=== PATIENT | female | born 1975 | race Hispanic/Latino ===

== ENCOUNTER 2025-05-15 21:10 | Emergency (ER) | payer SELFPAY ==
[~2025-05-15] VITALS: Ht 157.5 cm; Wt 78.5 kg
[2025-05-15 21:47] LABS: IMMATURE GRANULOCYTE ABSOLUTE 0.06 K/uL (0-1); NUCLEATED RED BLOOD CELLS 0.0 % (0.0-0.19); PLATELET COUNT (AUTO) 154 K/uL (130-400); RED BLOOD CELL COUNT(AUTO) 5.58 MIL/uL (4.00-5.50); RED CELL DISTRIBUTION WIDTH 13.2 % (11.0-15.5); WHITE BLOOD COUNT (AUTO) 7.8 K/uL (4.8-10.8)
[2025-05-15 21:56] LABS: CREATININE 0.5 mg/dL (0.5-1.0); GLOMERULAR FILTR. RATE CALC 114.0 mL/min (>90); GLUCOSE,RANDOM 323.0 mg/dL (70-105); SODIUM SERUM 139.0 mmol/L (136-145); UREA NITROGEN, BLOOD 12.0 mg/dL (7-18)
[2025-05-15 22:01] LABS: CREATINE KINASE, TOTAL 24.0 U/L (21-232)
--- NOTE | 2025-05-15 22:14 | NUR ---
PATIENT ATTEMPTING TO GET A URINE SAMPLE AT THIS TIME.
--- NOTE | 2025-05-15 22:30 | ERN ---
ED Note History of Present Illness Stated Complaint: C/O N X V, HIGH SUGAR Chief Complaint: Blood Sugar Problem Time Seen by MD: 21:17 Time Seen by Midlevel: 21:17 Dictation: The patient is a 60-year-old female with a past medical history of diabetes on metformin, blindness who presents to the emergency department with complaints of nausea nonbloody vomiting and elevated blood sugars at home onset noon today. Patient denies any abdominal pain, fevers, diarrhea or constipation. Reports last bowel movement today. Denies any upper respiratory symptoms. Patient denies any dizziness or headache. Allergies: Coded Allergies: No Known Allergies (Unverified Allergy, Unknown, 05/15/25) Past Medical History Past Medical History: Diabetes-Type II, Other Additional Past Medical Hx: PT IS BLIND Surgical History: Other, Surgical History Other: EYE SX RN Note Reviewed/Agreed w/PFSH: Yes Review of System Dictation Constitutional: Negative for fever,chills, and weight loss Eyes: Negative for injury, pain,redness, and discharge ENT: Negative for injury,pain or swelling Cardiovascular: Negative for chest pain, palpitations, and edema Respiratory: Negative for shortness of breath, cough, and wheezing, Abdomen/GI: Negative for abdominal pain, diarrhea, and constipation positive for nausea and vomiting Back: Negative for injury and pain : Negative for injury, bleeding and discharge MS/Extremity: Negative for injury and deformity Skin: Negative for rash, and discoloration Neuro: Negative for headache, weakness, numbness, tingling, and seizure Psych: Negative for suicide ideation, homicidal ideation, and hallucinations Initial Vital Sign VS Vital Signs Date Time Temp Pulse Resp B/P (MAP) Pulse Ox O2 Delivery O2 Flow Rate FiO2 05/15/25 21:14 97.9 93 20 125/76 99 Room Air 05/15/25 23:17 0 21 Physical Exam Dictation Vital Signs reviewed General Appearance: Alert, oriented x 3, no acute distress, well developed, nourished. Head and Face: non-traumatic. Eyes: PER pink conjunctivas, eyelid no trauma, anterior chamber with arcus senilis. Ears: Pinnas intact and no signs of trauma or erythema ear canals clear and no discharge TM no erythema Nose: No discharge, no bleeding. Oropharynx: Mouth normal, tongue pink. pharynx clear,no erythema, tonsils no exudates, no abscesses noted, mucous membrane moist Neck: Supple, non-tender, no thyromegaly, no masses, no JVD, no bruits Breast:Deferred Chest:No tenderness, no crepitus, no paradoxical movement, no retractions Lungs:Clear, well-ventilated, symmetric, no rales, no wheezing, no rhonchi, no stridor, good breath sounds bilaterally Heart: Regular rate, regular rhythm, no murmur, no gallops Vascular: no peripheral edema, Abdomen: Soft, positive bowel sounds, nondistended, no guarding, nontender, no rebound, no masses no hepatomegaly, no splenomegaly, no Ocampo's sign, no hernias. Rectal: Deferred Genital: Deferred Neurological: Normal speech, motor function intact, sensory function intact Musculoskeletal: Neck nontender, full range of motion, back nontender, full range of motion, Extremities: nontender, full range of motion Skin: Color pink, dry, no turgor, no rash, no lacerations, no abrasions, no contusions. Lymphatic: Deferred Results (Laboratory/Radiology) Laboratory/Radiology Laboratory Tests Test 05/15/25 21:19 05/15/25 21:42 05/15/25 22:19 Whole Blood Glucose 329 MG/DL (70-110) H White Blood Count 7.8 K/uL (4.8-10.8) Red Blood Count 5.58 MIL/uL (4.00-5.50) H Hemoglobin 15.5 g/dL (12.0-16.0) Hematocrit 45.1 % (36-48) Mean Corpuscular Volume 80.8 fL (79-99) Mean Corpuscular Hemoglobin 27.8 pg (27.0-33.0) Mean Corpuscular Hemoglobin Concent 34.4 g/dL (32.0-36.0) Red Cell Distribution Width 13.2 % (11.0-15.5) Platelet Count 154 K/uL (130-400) Mean Platelet Volume 11.1 fL (7.5-10.5) H Immature Granulocyte % (Auto) 0.8 % (0-1) Neutrophils (%) (Auto) 85.3 % (40.0-77.0) H Lymphocytes (%) (Auto) 10.1 % (21.0-51.0) L Monocytes (%) (Auto) 3.4 % (3.0-13.0) Eosinophils (%) (Auto) 0.1 % (0.0-8.0) Basophils (%) (Auto) 0.3 % (0.0-5.0) Neutrophils # (Auto) 6.7 K/uL (1.8-7.7) Lymphocytes # (Auto) 0.8 K/uL (1.0-4.8) L Monocytes # (Auto) 0.3 K/uL (0.1-1.0) Eosinophils # (Auto) 0.01 K/uL (0.00-0.70) Basophils # (Auto) 0.02 K/uL (0.00-0.20) Absolute Immature Granulocyte (auto 0.06 K/uL (0-1) Nucleated Red Blood Cells 0.0 % (0.0-0.19) Sodium Level 139 mmol/L (136-145) Potassium Level 3.7 mmol/L (3.5-5.1) Chloride Level 100 mmol/L (101-111) L Carbon Dioxide Level 28 mmol/L (21-32) Blood Urea Nitrogen 12 mg/dL (7-18) Creatinine 0.5 mg/dL (0.5-1.0) Glomerular Filtration Rate Calc 114 mL/min (>90) Random Glucose 323 mg/dL (70-105) H Total Calcium 8.8 mg/dL (8.5-10.1) Total Creatine Kinase 24 U/L (21-232) Troponin I High Sensitivity < 4 ng/L (4-50) L Lipase 28 U/L (16-77) Urine Color YELLOW (YELLOW) Urine Appearance CLEAR (CLEAR) Urine pH 7.0 (5.0-8.0) Urine Specific [place] 1.040 (1.001-1.031) Urine Protein 30 mg/dL (NEGATIVE) H Urine Glucose (UA) >=1000 mg/dL (NEGATIVE) H Urine Ketones 40 mg/dL (NEGATIVE) H Urine Occult Blood NEGATIVE (NEGATIVE) Urine Nitrate NEGATIVE (NEGATIVE) Urine Bilirubin NEGATIVE mg/dL (NEGATIVE) Urine Urobilinogen 3 mg/dL (0.2-1.0) H Urine Leukocyte Esterase NEGATIVE Atilio/uL Urine RBC None /HPF (0-1) Urine WBC 2-5 /HPF (0-1) H Urine Squamous Epithelial Cells RARE /HPF (0-2) Urine Bacteria RARE /HPF (None Seen) Labs Reviewed?: Yes EKG: (+) rhythm (Sinus rhythm) EKG Comment: Date:05/15/2025 Time:2258 Ventricular rate:85 MD interval:160 QRS duration:88 QT/QTc:390/465 EKG interpretation: Sinus rhythm Reviewed by ED Attending no STEMI ED Course ED Course Orders Procedure Category Date Status Time Cbc With Differential LAB 05/15/25 Complete 21: Troponin I High LAB 05/15/25 Complete Sensitivity 21:33 Urinalysis Profile LAB 05/15/25 Complete 21:33 0.9%Nacl 1000ml (Ns PHA 05/15/25 Complete 1000ml) 22:00 Ondansetron 4mg Inj PHA 05/15/25 Complete (Zofran 4mg Inj) 22:00 Pantoprazole 40mg Inj PHA 05/15/25 Complete (Protonix 40mg Inj 22:00 Creatine Kinase, Total LAB 05/15/25 Complete 21:33 Lipase LAB 05/15/25 Complete 21:33 Basic Metabolic Panel LAB 05/15/25 Complete 21:33 Insulin Regular, PHA 05/15/25 Complete Human 3ml (Humulin R 23:00 12 Lead Ekg Tracing- EKG 05/15/25 Logged Technical 22:55 Current Medications Medications (Trade) Dose Ordered Sig/Amor Route PRN Reason Start Time Stop Time Status Last Admin Dose Admin Insulin Human Regular (humuLIN R 100 UNIT/ML 3ML) 5 unit ONCE ONCE SQ 05/15/25 23:00 05/15/25 23:20 DC 05/15/25 23:46 Ondansetron HCl (zoFRAN 4MG INJ) 4 mg ONCE ONCE IVP 05/15/25 22:00 05/15/25 22:01 DC 05/15/25 23:02 Pantoprazole Sodium (PROTonix 40MG INJ) 40 mg ONCE ONCE IVP 05/15/25 22:00 05/15/25 22:01 DC 05/15/25 23:02 Sodium Chloride 1,000 ml @ 0 mls/hr ONCE ONCE IV 05/15/25 22:00 05/15/25 22:01 DC 05/15/25 23:02 Vital Signs Date Time Temp Pulse Resp B/P (MAP) Pulse Ox O2 Delivery O2 Flow Rate FiO2 05/15/25 23:17 82 18 109/65 97 Room Air* 0 21 05/15/25 21:14 97.9 93 20 125/76 99 Room Air Medical Decision Making MDM The patient is a 60-year-old female with a past medical history of diabetes on metformin, blindness who presents to the emergency department with complaints of nausea nonbloody vomiting and elevated blood sugars at home onset noon today. Patient denies any abdominal pain, fevers, diarrhea or constipation. Reports last bowel movement today. Denies any upper respiratory symptoms. Patient denies any dizziness or headache. CBC showed no leukocytosis, no anemia, chemistry showed mild hypochloremia, hyperglycemia, negative troponin, negative lipase, normal renal function patient received IV fluids in Zofran and insulin. Blood glucose improved. Patient reports feeling better after medication administration. No more episodes of vomiting. on physical exam patient is in no acute distress, nontoxic appearance, neurologically intact, abdomen is soft and nontender. Patient will be discharged to follow up with PCP. Differential diagnosis: Gastroenteritis, gastritis, electrolyte imbalance, dehydration, ACS Need for hospitalization: Patient does not meet criteria for hospitalization. There are no social concerns with this patient. DX & DISP Disposition: Discharge Departure Impression: Primary Impression: Uncontrolled diabetes mellitus with hyperglycemia Additional Impression: Nausea and vomiting Condition: Stable Scripts Ondansetron (Ondansetron Odt) 4 Mg Tab.rapdis 4 MG PO Q6HPRN PRN for nausea, #16 TAB 0 Refills Prov: BABAK PIKE OPERATING ROOM SPECIALIST 05/16/25 Additional Instructions: Your labs were unremarkable except your sugar was slightly elevated. we gave you some fluids and insulin to bring it down. Please follow up with your PCP in 1-2 days. If anything worsens Please return to ER. FOLLOW-UP WITH PRIMARY CARE PROVIDER IN 1 TO 2 DAYS. TAKE MEDICATIONS DIRECTED HERE IN THE EMERGENCY ROOM. OKAY TO CONTINUE HOME MEDICATIONS UNLESS OTHERWISE DISCUSSED DURING YOUR VISIT IN THE EMERGENCY ROOM TODAY. RETURN TO YOUR NEAREST EMERGENCY ROOM IF SYMPTOMS WORSEN OR IF THERE IS NO IMPROVEMENT. CALL 911 IF YOU NEED IMMEDIATE ASSISTANCE. TAKE TYLENOL [id number] NEEDED AND IF NO CONTRAINDICATIONS ARE PRESENT. INCREASE ORAL HYDRATION. A WOUND CULTURE OR URINE CULTURE WAS ORDERED HERE IN THE EMERGENCY ROOM DEPARTMENT PLEASE FOLLOW-UP WITH PRIMARY CARE PROVIDER AND ADVISE THEM TO GET REPEAT PORTS FROM OUR FACILITY. IF YOU HAD ANY GWENDOLYN WRAP/SPLINTS THAT WERE APPLIED HERE, PLEASE DO NOT REMOVE THEM UNTIL YOU SEE YOUR PRIMARY CARE OR SPECIALTY. Referrals: FANTA RODRIGUEZ MD (PCP) Time of Disposition: 00:28 I have reviewed the case, and I agree with, Diagnosis and Plan BABAK PIKE [facility] May 15, 2025 22:30
[2025-05-15 22:32] LABS: ADD UA MICROSCOPIC YES; APPEARANCE,URINE CLEAR (CLEAR); GLUCOSE, URINE (UA) >=1000 mg/dL (NEGATIVE); LEUKOCYTE ESTERASE ,URINE NEGATIVE Leu/uL (NEGATIVE); NITRATE,URINE NEGATIVE (NEGATIVE); OCCULT BLOOD,URINE NEGATIVE (NEGATIVE)
[2025-05-15 22:33] LABS: SQUAMOUS EPITHELIAL CELL,UR RARE /HPF (0-2)
[2025-05-15] MEDS: 0.9%NACL 1000ML 1,000 ML IV ONE (23:02)
[2025-05-16 00:42] VITALS: BP 104/63; PULSE 80; RESP 18; TEMP 98.3; O2SAT 98
--- NOTE | 2025-05-16 06:51 | EKG ---
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
== END 2025-05-16 01:10 | disposition home or self-care (01) ==
LOC: EDH 21:10
DX: E11.65 Type 2 diabetes mellitus with hyperglycemia (principal); R11.2 Nausea with vomiting, unspecified; Z98.890 Other specified postprocedural states
CPT/HCPCS: 99284; 96374; 96361; 96375; 82550; 84484; 80048; 83690; 85025; 82948; 81001; 36415; 93005; 96372; 96376; J1815; J7030; J2405 ×2; J2470